=== PATIENT | female | born 1980 | race Caucasian/White ===

== ENCOUNTER 2018-05-25 05:51 | Day surgery (SDC) | payer MEDICARE, MEDICAID ==
[2018-05-24 13:13] LABS: BASOPHILS % (AUTO) 0.5 % (0-1); EOSINOPHILS # (AUTO) 0.2 X10'3 (0-0.9); EOSINOPHILS % (AUTO) 3.2 % (0-6); LYMPHOCYTES # (AUTO) 2.4 X10'3 (1.1-4.8); LYMPHOCYTES % (AUTO) 35.6 % (21-51); MEAN CORPUSCULAR HEMOGLOBIN 32.2 PG (27.0-31.0); MEAN CORPUSCULAR HGB CONC 33.9 % (33.0-36.5); MEAN CORPUSCULAR VOLUME 95.2 FL (78-98); MEAN PLATELET VOLUME 7.9 FL (7.4-10.4); MONOCYTES # (AUTO) 0.6 X10'3 (0-0.9); MONOCYTES % (AUTO) 8.3 % (2-12); NEUTROPHILS # (AUTO) 3.5 X10'3 (1.8-7.7); NEUTROPHILS % (AUTO) 52.4 % (42-75); PRE OP HEMATOCRIT 40.5 % (35.0-45.0); PRE OP HEMOGLOBIN 13.7 g/dL (12.0-16.0); PRE OP PLATELET COUNT 264 X10'3 (140-440); RED BLOOD COUNT 4.25 X10'6 (4.20-5.60); RED CELL DISTRIBUTION WIDTH 13.5 % (11.5-14.5)
[2018-05-24 13:21] LABS: CLARITY,URINE CLEAR (Clear); COLOR,URINE STRAW (Yellow); GLUCOSE, URINE NEGATIVE (Neg); KETONES,URINE NEGATIVE (Neg); LEUKOCYTE ESTERASE ,URINE NEGATIVE (Neg); NITRITES, URINE NEGATIVE (Neg); OCCULT BLOOD,URINE TRACE-INTACT (Neg); PH,URINE 6.5 (4.8-8.0); PROTEIN,URINE NEGATIVE (Neg); UROBILINOGEN,URINE 0.2 E.U/dL (0.2-1.0)
[2018-05-24 13:27] LABS: UA COLLECTION TYPE CLN CATCH MIDSTREAM
[2018-05-24 13:31] LABS: ALBUMIN 3.8 G/DL (3.4-5.0); ALBUMIN/GLOBULIN RATIO 1.4 (1.1-1.5); ALKALINE PHOSPHATASE 52 IU/L (46-116); BLOOD UREA NITROGEN 10 MG/DL (7-18); BUN/CREATININE RATIO 13.9 (6.6-38.0); CALCIUM 9.2 MG/DL (8.5-10.1); CHLORIDE 104 MMOL/L (99-107); CREATININE 0.72 MG/DL (0.40-0.90); PRE OP ALT 16 U/L (30-65); PRE OP ANION GAP 5 (8-16); PRE OP AST 13 U/L (10-37); PRE OP BILIRUB, TOTAL 0.5 MG/DL (0.0-1.0); PRE OP GLUCOSE 75 MG/DL (70-104); PRE OP POTASSIUM 4.3 MMOL/L (3.4-5.1); PRE OP SODIUM 141 MMOL/L (135-145); TOTAL CARBON DIOXIDE 32.5 MMOL/L (24-32); TOTAL PROTEIN 6.6 G/DL (6.4-8.2); eGFR > 90 ML/MIN
[2018-05-24 13:52] LABS: RBC,URINE 0-2 /HPF (0-2); WBC,URINE NONE SEEN /HPF (0-4)
[2018-05-24 13:53] LABS: BACTERIA,URINE NONE SEEN /HPF (Neg); SQUAMOUS EPITHELIAL CELL,UR FEW /LPF (FEW)
[2018-05-25] VITALS (9 sets, daily range): BP systolic 91–128; BP diastolic 48–80
[~2018-05-25] VITALS: Ht 154.9 cm; Wt 61.2 kg
[~2018-05-25 05:51] MED LIST: BUPR1PAT TOP; Cefazolin 2GM/50ML dext iso,osmotic IVPB IV ONE; PER10325T PO; TIZA4CAP PO; famotidine 20mg tablet PO ONE; ringers solution, lacted 1,000 ML IV SCH
[2018-05-25] MEDS ORDERED: LIDOcaine 1% (10mg/ml) 2ml vial ONE (06:34)
[2018-05-25] MEDS ORDERED: LIDOcaine 1% 30ml preserv. free vial ONE (06:45)
[2018-05-25] MEDS ORDERED: epiNEPHrine 1 mg/ml inj ONE (06:45)
[2018-05-25] MEDS ORDERED: ondansetron/PF 4mg/2ml inj ONE ×2 (08:24→09:01)
[2018-05-25] MEDS ORDERED: sevoflurane 250ml liquid IH ONE (08:24)
[2018-05-25] MEDS ORDERED: midazolam 2 mg/2 ml injection ONE (08:26)
[2018-05-25] MEDS ORDERED: fentaNYL/PF 50MCG/1 ML 2ML syringe ONE ×2 (08:26→09:02)
[2018-05-25] MEDS ORDERED: LIDOcaine 2% (20mg/ml) 5ml vial ONE (09:01)
[2018-05-25] MEDS ORDERED: propofol inj 20 ML IV ONE (09:01)
[2018-05-25] MEDS ORDERED: dexamethasone sod phosphate 4mg/ml inj. ONE (09:01)
[2018-05-25] MEDS ORDERED: morphine 4 MG/ML inj SYRINge IV PRN ×2 (09:05)
[2018-05-25] MEDS ORDERED: ringers solution, lacted 1,000 ML IV SCH (09:05)
[2018-05-25] MEDS ORDERED: proCHLORperazine 10 MG/2 ml inj IV PRN (09:05)
[2018-05-25] MEDS ORDERED: ondansetron/PF 4mg/2ml inj IV PRN (09:05)
[2018-05-25] MEDS ORDERED: meperidine/PF 25mg/ml syringe IV PRN ×3 (09:05)
== END 2018-05-25 10:36 | disposition home or self-care (01) ==
LOC: PAS 05:51
PROVIDERS: ATTEND Surgery
DX: M79.89 Other specified soft tissue disorders (principal); G89.29 Other chronic pain; M41.9 Scoliosis, unspecified; Z98.890 Other specified postprocedural states; Z79.899 Other long term (current) drug therapy; Z98.51 Tubal ligation status; Z86.14 Personal history of Methicillin resistant Staphylococcus aureus infection; Z87.891 Personal history of nicotine dependence
CPT/HCPCS: 21932; 36415; 80053; 81001; 85025; J0171; J0690; J1100; J2001; J2250; J2405; J2704; J3010; J3490; J7120; 88304; A7000